=== PATIENT | female | born 1980 | race Caucasian/White ===

== ENCOUNTER 2020-08-31 09:06 | Inpatient (IN) | payer OTHER, SELFPAY ==
[~2020-08-31] VITALS: Ht 170.2 cm; Wt 119.7 kg
[2020-08-31 11:12] LABS: CALCIUM 8.7 mg/dL (8.5-10.1); CARBON DIOXIDE 24.6 mmol/L (21-32); CHLORIDE SERUM 96 mmol/L (98-107); CREATININE SERUM 0.7 mg/dL (0.6-1.0); GFR1 > 60 mL/min; GLUCOSE SERUM 279 mg/dL (74-106); POTASSIUM SERUM 4.1 mmol/L (3.5-5.1); SODIUM SERUM 133 mmol/L (136-145)
[2020-08-31 11:26] LABS: BASOPHIL % 0.2 % (0.2-1.3); PLATELET COUNT 199 x10^3mcL (179-408); RED CELL DISTRIBUTION WIDTH 13.5 % (12.3-17.7)
[2020-08-31 11:28] LABS: microscopic required? YES; urine erythrocyte TRACE (NEGATIVE)
[2020-08-31 11:29] LABS: ALKALINE PHOSPHATASE 111 U/L (46-116); ALT/SGPT 120 U/L (14-59); AST/SGOT 83 U/L (15-37); BILIRUBIN TOTAL 0.5 mg/dL (0.20-1.00); LACTIC DEHYDROGENASE (LDH) 461 U/L (100-190); TOTAL PROTEIN, SERUM 7.9 g/dL (6.4-8.2)
[2020-08-31 11:30] LABS: C REACTIVE PROTEIN 22.2 mg/dL (<=0.9)
[2020-08-31 15:28] LABS: CHOLESTEROL/HDL RATIO 3.3; MAGNESIUM 1.9 mg/dL (1.8-2.4)
[2020-09-01 06:15] LABS: CALCIUM 9.2 mg/dL (8.5-10.1); CARBON DIOXIDE 24.1 mmol/L (21-32); CHLORIDE SERUM 100 mmol/L (98-107); CREATININE SERUM 0.7 mg/dL (0.6-1.0); GFR1 > 60 mL/min; GLUCOSE SERUM 356 mg/dL (74-106); POTASSIUM SERUM 4.4 mmol/L (3.5-5.1); SODIUM SERUM 136 mmol/L (136-145)
[2020-09-01 06:38] LABS: BASOPHIL % 1.1 % (0-2); PLATELET COUNT 248 x10^3mcL (130-400); RED CELL DISTRIBUTION WIDTH 12.8 % (11.5-14.5)
[2020-09-01 15:46] VITALS: BP 117/67
[2020-09-01 21:08] VITALS: BP 115/77
[2020-09-02 05:50] VITALS: BP 103/69
[2020-09-02 08:00] LABS: BASOPHIL % 0.2 % (0.2-1.3); PLATELET COUNT 297 x10^3mcL (179-408); RED CELL DISTRIBUTION WIDTH 13.6 % (12.3-17.7)
[2020-09-02 08:21] LABS: C REACTIVE PROTEIN 10.3 mg/dL (<=0.9); CALCIUM 9.1 mg/dL (8.5-10.1); CARBON DIOXIDE 26.5 mmol/L (21-32); CHLORIDE SERUM 100 mmol/L (98-107); CREATININE SERUM 0.7 mg/dL (0.6-1.0); GFR1 > 60 mL/min; GLUCOSE SERUM 265 mg/dL (74-106); POTASSIUM SERUM 4.1 mmol/L (3.5-5.1); SODIUM SERUM 136 mmol/L (136-145)
[2020-09-02 09:13] VITALS: BP 117/71
[2020-09-02 13:10] VITALS: BP 123/70
[2020-09-02 15:32] LABS: BILIRUBIN DIRECT 0.12 mg/dL (0.0-0.2); BILIRUBIN TOTAL 0.31 mg/dL (0.20-1.00); TOTAL PROTEIN, SERUM 7.6 g/dL (6.4-8.2)
[2020-09-02 15:35] LABS: ALBUMIN 2.8 g/dL (3.4-5.0)
[2020-09-02 16:47] VITALS: BP 96/69
[2020-09-02 20:18] VITALS: BP 125/73
[2020-09-03 05:10] VITALS: BP 114/68
[2020-09-03 07:24] LABS: BASOPHIL % 0.2 % (0.2-1.3); PLATELET COUNT 304 x10^3mcL (179-408); RED CELL DISTRIBUTION WIDTH 13.7 % (12.3-17.7)
[2020-09-03 08:08] LABS: CALCIUM 9.3 mg/dL (8.5-10.1); CHLORIDE SERUM 102 mmol/L (98-107); CREATININE SERUM 0.7 mg/dL (0.6-1.0); GFR1 > 60 mL/min; GLUCOSE SERUM 200 mg/dL (74-106); POTASSIUM SERUM 3.9 mmol/L (3.5-5.1); SODIUM SERUM 139 mmol/L (136-145)
[2020-09-03 08:22] LABS: CARBON DIOXIDE 26.6 mmol/L (21-32)
[2020-09-03 08:46] VITALS: BP 96/59
[2020-09-03 09:04] LABS: BILIRUBIN DIRECT 0.14 mg/dL (0.0-0.2); BILIRUBIN TOTAL 0.38 mg/dL (0.20-1.00); TOTAL PROTEIN, SERUM 7.2 g/dL (6.4-8.2)
[2020-09-03 09:07] LABS: ALBUMIN 2.6 g/dL (3.4-5.0)
[2020-09-03 12:20] VITALS: BP 100/61
[2020-09-03 16:20] VITALS: BP 118/73
[2020-09-03 21:37] VITALS: BP 114/71
[2020-09-04 06:22] VITALS: BP 103/65
[2020-09-04 08:05] LABS: ALBUMIN 2.7 g/dL (3.4-5.0); BILIRUBIN DIRECT 0.14 mg/dL (0.0-0.2); BILIRUBIN TOTAL 0.45 mg/dL (0.20-1.00); TOTAL PROTEIN, SERUM 6.5 g/dL (6.4-8.2)
[2020-09-04 09:06] VITALS: BP 98/54
[2020-09-04 09:43] LABS: BASOPHIL % 0.1 % (0.2-1.3); PLATELET COUNT 315 x10^3mcL (179-408); RED CELL DISTRIBUTION WIDTH 13.4 % (12.3-17.7)
[2020-09-04 10:01] LABS: CARBON DIOXIDE 24.8 mmol/L (21-32); CHLORIDE SERUM 101 mmol/L (98-107); CREATININE SERUM 0.6 mg/dL (0.6-1.0); GFR1 > 60 mL/min; GLUCOSE SERUM 156 mg/dL (74-106); POTASSIUM SERUM 3.8 mmol/L (3.5-5.1); SODIUM SERUM 137 mmol/L (136-145)
[2020-09-04 13:47] VITALS: BP 98/54
[2020-09-04 17:10] VITALS: BP 126/77
[2020-09-04 21:44] VITALS: BP 96/58
[2020-09-05 06:35] VITALS: BP 116/71
[2020-09-05 08:18] LABS: BASOPHIL % 0.2 % (0.2-1.3); PLATELET COUNT 335 x10^3mcL (179-408); RED CELL DISTRIBUTION WIDTH 13.4 % (12.3-17.7)
[2020-09-05 08:50] VITALS: BP 99/63
[2020-09-05 09:01] LABS: BILIRUBIN DIRECT 0.14 mg/dL (0.0-0.2); BILIRUBIN TOTAL 0.41 mg/dL (0.20-1.00); TOTAL PROTEIN, SERUM 7.2 g/dL (6.4-8.2)
[2020-09-05 09:16] LABS: ALBUMIN 2.5 g/dL (3.4-5.0)
[2020-09-05 09:19] LABS: CARBON DIOXIDE 25.7 mmol/L (21-32); CHLORIDE SERUM 100 mmol/L (98-107); CREATININE SERUM 0.5 mg/dL (0.6-1.0); GFR1 > 60 mL/min; GLUCOSE SERUM 213 mg/dL (74-106); POTASSIUM SERUM 3.9 mmol/L (3.5-5.1); SODIUM SERUM 137 mmol/L (136-145)
[2020-09-05 10:56] LABS: CALCIUM 9.5 mg/dL (8.5-10.1)
[2020-09-05 13:00] VITALS: BP 98/84
[2020-09-05 17:30] VITALS: BP 106/61
[2020-09-05 20:56] VITALS: BP 102/49
[2020-09-06 06:02] VITALS: BP 103/65
[2020-09-06 09:12] VITALS: BP 109/72
[2020-09-06 10:08] LABS: BILIRUBIN DIRECT 0.2 mg/dL (0.0-0.2); BILIRUBIN TOTAL 0.5 mg/dL (0.20-1.00); TOTAL PROTEIN, SERUM 6.9 g/dL (6.4-8.2)
[2020-09-06 10:13] LABS: ALBUMIN 2.7 g/dL (3.4-5.0)
[2020-09-06 12:30] VITALS: BP 112/63
[2020-09-06 16:24] VITALS: BP 109/66
[2020-09-06 19:43] VITALS: BP 96/53
[2020-09-07 04:54] VITALS: BP 89/54
[2020-09-07 08:59] LABS: BASOPHIL % 0.1 % (0.2-1.3); PLATELET COUNT 349 x10^3mcL (179-408); RED CELL DISTRIBUTION WIDTH 13.1 % (12.3-17.7)
[2020-09-07 09:49] LABS: CALCIUM 9.1 mg/dL (8.5-10.1); CARBON DIOXIDE 29.4 mmol/L (21-32); CHLORIDE SERUM 102 mmol/L (98-107); CREATININE SERUM 0.6 mg/dL (0.6-1.0); GFR1 > 60 mL/min; GLUCOSE SERUM 152 mg/dL (74-106); POTASSIUM SERUM 4.3 mmol/L (3.5-5.1); SODIUM SERUM 140 mmol/L (136-145)
[2020-09-07 12:39] VITALS: BP 103/60
[2020-09-07 16:32] VITALS: BP 103/62
[2020-09-07 20:01] VITALS: BP 102/55
[2020-09-08 04:29] VITALS: BP 102/63
[2020-09-08 07:07] LABS: BASOPHIL % 0.1 % (0.2-1.3); PLATELET COUNT 340 x10^3mcL (179-408); RED CELL DISTRIBUTION WIDTH 13.5 % (12.3-17.7)
[2020-09-08 07:12] LABS: CALCIUM 8.7 mg/dL (8.5-10.1); CARBON DIOXIDE 31.1 mmol/L (21-32); CHLORIDE SERUM 100 mmol/L (98-107); CREATININE SERUM 0.7 mg/dL (0.6-1.0); GFR1 > 60 mL/min; GLUCOSE SERUM 171 mg/dL (74-106); POTASSIUM SERUM 4.1 mmol/L (3.5-5.1); SODIUM SERUM 136 mmol/L (136-145)
[2020-09-08 09:15] VITALS: BP 108/66
[2020-09-08] MEDS ORDERED: VENTOLIN H0.09 MG/A1 IH (10:18)
[2020-09-08] MEDS ORDERED: GLUCOPHAGE500 MG PO (10:19)
[2020-09-08] MEDS ORDERED: DECADRON4 MG PO (10:19)
[2020-09-08] MEDS ORDERED: ACCU-CHEK1 EAC2 MC (10:19)
[2020-09-08 13:02] VITALS: BP 119/63
[2020-09-08 16:31] VITALS: Ht 170.2 cm; Wt 119.7 kg
[2020-09-08 17:04] VITALS: BP 113/70
[2020-09-08 22:41] VITALS: BP 110/65
[2020-09-09 06:00] VITALS: BP 120/61
[2020-09-09 08:35] VITALS: BP 115/70
[2020-09-09] MEDS ORDERED: ELIQUIS2.5 MG PO (10:46)
[2020-09-09 11:51] VITALS: BP 103/58
[2020-09-09 12:51] VITALS: BP 103/58
== END 2020-09-09 15:24 | disposition home or self-care (01) | DRG 177 ==
LOC: ED 09:06 → DU 13:01
PROVIDERS: Emergency Medicine; ADMIT Family Medicine; ATTEND Family Medicine
PROC: XW033E5 Introduction of Remdesivir Anti-infective into Peripheral Vein, Percutaneous Approach, New Technology Group 5 (ICD-10-PCS; principal; 2020-09-02)
DX: U07.1 COVID-19 (principal); J96.01 Acute respiratory failure with hypoxia; J12.89 Other viral pneumonia; E87.1 Hypo-osmolality and hyponatremia; N39.0 Urinary tract infection, site not specified; E66.9 Obesity, unspecified; Z71.3 Dietary counseling and surveillance; Z68.27 Body mass index [BMI] 27.0-27.9, adult
CPT/HCPCS: 36600; 82962; 83880; 85378; 87804; 94150; G0378; J0456; J0696; J1100; J1650; J1815; J3535; J7040; J7050; J7060; U0003